=== PATIENT | male | born 1990 ===

== ENCOUNTER 2024-04-18 22:37 | Emergency (ER) | payer OTHER, SELFPAY ==
--- NOTE | ~2024-04-18 | XR_ITS ---
EXAMINATION: XR abdomen/kub 1V DATE: 04/18/2024 22:59 INDICATION: Constipation. TECHNIQUE: A supine view of the abdomen on 3 radiographs was obtained. COMPARISON: None. FINDINGS: There are no dilated loops of bowel. There is a moderate volume of stool in the colon. IMPRESSION: 1. Nonobstructive bowel gas pattern. Reviewed, dictated and finalized at location A. NG MACHINE SERVICER
[2024-04-18 22:39] VITALS: BP 143/78; PULSE 92; RESP 17; TEMP 36.7; O2SAT 96
--- OUTSIDE RECORDS SUMMARY | 2024-04-18 22:40 | XMS_ITS | Continuity of Care Document ---
Author Organization [facility] Address [id number] [place] [address] [address] [place] [address] Phone Care Team Providers Care Medical Office Professional Instructor Name Role Phone Morales OD, Keenan Unavailable Unavailable Advance Directives Directive Yes / No Effective Date File Name No Information Encounters Encounter Description Practice Location Reason(s) For Visit Diagnoses Date Provider Providers Copied on Encounter [facility], [address], [place], [place], [id number], [place] tel:[phone] [facility] No Information Mar-1 8-200 6 Morales OD Keenan. [address] [facility] , [address], [place], [address], [place]. tel:[phone] Family History Family Member Type Diagnosis Age At Onset No Information Payers Payer name Insurance type Covered democrat ID Authoriza tion(s) No Information Social History Type Description Quantity Date Captured Comments Sex Male Smoking Status No Information Chief Complaint And Reason For Visit No Information Reason For Referral Reason For Referral No Information History Of Present Illness Encounter Date Complaint History Of Prese nt Illness No Information Functional Status Date Functional Assessmen t No Information Instructions Date Instruction Additional Infor mation No Information Assessments Type Assessment Date No Information Patient Care Teams Name Effective Dates (start - stop) Status Members No Information
--- OUTSIDE RECORDS SUMMARY | 2024-04-18 22:40 | XMS_ITS | Data Portability ---
Author Organization [employer], Main Office Address [address] [place] [address] Assessment No assessment recorded. Plan of Treatment Reminders Order Date Submit Date Provider Last Modified By Organization Details Last Modified Time Details Appointments Any 15 2024 08:45A Jesus Eddy MD Not available Not available Not available Lab glycohemo globin, total, blood 2022 023 [facility] (Lab), [address] [place], [address], 03/06/2023 21:37:29 lipid panel, serum 2022 023 [facility] (Lab), [address] [place], [address], 03/06/2023 20:44:58 glycohemo globin, total, blood [email or web address] (Lab), [address] [place], [address], 11/20/2023 09:48:24 glycohemo globin, total, blood 2024 025 [email or web address] [facility] (Lab), [address] [place], [address], 04/17/2024 10:42:42 lipid panel, serum 2024 025 [email or web address] [facility] (Lab), [address] [place], [address], 04/17/2024 10:42:42 CMP, serum or plasma 2024 025 [email or web address] [facility] ([facility]), [address], [place], [address], 04/17/2024 10:42:42 Referral podiatris t referral 2023 024 [email or web address] Minh Valdez DPM, [address], [place], [address], 11/28/2023 08:40:21 dermatolo gist referral - Please call patient to schedule an appointme nt. Thank you. 2024 025 [facility], [address] [place] [address], [address], 04/17/2024 12:01:05 Procedures None recorded. Surgeries None recorded. Imaging None recorded. Medication Orders fenofibra te 160 mg tablet 2022 023 [facility]/Pharmacy #[id number], [address], [place], [address], 03/06/2023 11:45:[address] 10 mg tablet 2022 023 [facility]/Pharmacy #[id number], [address], [place], [address], 03/06/2023 11:45:48 rosuvasta tin 20 mg tablet 2022 023 [facility]/Pharmacy #[id number], [address], [place], [address], 03/06/2023 11:45:48 fenofibra te 160 mg tablet 2023 024 [facility]/Pharmacy #[id number], [address], [place], [address], 10/17/2023 14:43:[address] 10 mg tablet 2023 024 [id number], [address], [place], [address], 10/17/2023 14:43:20 rosuvasta tin 20 mg tablet 2023 024 [id number] [address] [place], [address], 10/17/2023 14:43:21 naproxen 500 mg tablet 2023 024 [id number] [address] [place], [address], 10/31/2023 15:36:59 fenofibra te 160 mg tablet 2024 025 [id number], [address] [place], [address], 04/17/2024 13:01:[address] 10 mg tablet 2024 025 [id number], [address] [place], [address], 04/17/2024 13:01:57 rosuvasta tin 20 mg tablet 2024 025 [id number], [address] [place], [address], 04/17/2024 13:01:57 Patient TargetsNo targets recorded. Patient InstructionsNo instructions recorded. Reason for Referral [employer] Specialist Referral for Pain in left foot Referring Physician: Joseph Eddy, Internal Medicine, Encounter Date: 10/31/2023 Weeder Referral for S kin lesion Please call patient to schedule an appointment. Thank you. Referring Physician: Joseph Eddy, Internal Medicine, Encounter Date: 04/17/2024 Results Created Date Observation Date Name Description Value Unit Range Abnormal Flag Note LastModifiedBy Organization Detail LastModifiedTime 03/06/2003/06/2023 LIPID PANEL cholesterol 150 mg/dL 140-19 9 NIH TRISHA NSUS RECOM MENDA TION FOR REMEDIOS STERO L: ADULT CHILD LOW RISK: <200 <170 BORDE RLINE : <200- 239 ----- HIGH RISK: >240 >200 Not Available [facility] (Lab) [address] [place], [address], 03/06/2023 20:44:58 03/06/20 23 03/06/2023 LIPID PANEL triglyceride s 118 mg/dL 0-150 NIH TRISHA NSUS REPOR T RECOM MENDA TION FOR TRIGL YCERI NAVJOT: ADULT CHILD LOW RISK: <150 ----- BODER LINE: 150-1 99 ----- HIGH RISK: >200 ----- Not Available [facility] (Lab) [address] [place], [address], 03/06/2023 20:44:58 03/06/20 23 03/06/2023 LIPID PANEL HDL cholesterol 41 mg/dL 40- Not Available [facility] (Lab) [address] [place], [address], 03/06/2023 20:44:58 03/06/20 23 03/06/2023 LIPID PANEL LDL cholesterol, calculated 85 mg/dL 0-130 NIH TRISHA NSUS REPOR T RECOM MENDA TIONS FOR LDL: ADULT CHILD LOW RISK <130 <110 (OPTI MAL LDL) <100 ----- BORDE RLINE : 130-1 59 ----- HIGH RISK: >160 >130 A TRIGL YCERI DE RESUL T >400 INVAL IDATE S THE CALCU LATIO N FOR LDL FRACT IONAT ION - THE LDL RESUL T WILL NOT BE REPOR GILSON. Not Available [facility] (Lab) [address] [place], [address], 03/06/2023 20:44:58 03/06/20 23 03/06/2023 HEMOG LOBIN A1C HA1C 5.5 % 4.0-6. 0 Diabe ankia Scree lavonne Crite armida: <5.7% Consi stent with absen ce of diabe nakia 5.7-6 .4% Consi stent with incre ased risk for diabe nakia (pred iabet es) >OR=6 .5% Consi stent with diabe nakia REFER ENCE: Diabe nakia Care 2016, 39(Smart ppl.1 ):s13 -s22 Not Available [facility] ([facility]) [address] [place], [address], 03/06/2023 21:37:29 Result Notes None recorded. Problems Name Problem SNOMED Code Status Onset Date Resolution Date Notes Provider Name and Address Organization Details Recorded Time Daytime somnolence 495816617922 Active 2020 Not Available [employer] 3 15:16:09 Asthma 283293554 Active 2020 Not Available [employer] 3 15:16:09 Syncope 193143949 Active 2021 Not Available [employer] 3 15:16:09 Hypertrigl yceridemia 028465463 Active 2018 Not Available [employer] 3 15:16:09 Seasonal allergic rhinitis 354974272 Active 2020 Not Available [employer] 3 15:16:10 Obesity 341835204 Active 2018 Not Available [employer] 3 15:16:10 Bronchospa sm 3033789 Active Not Available [employer] 3 15:16:10 Hyperlipid emia 80830816 Active 2018 Not Available [employer] 3 15:16:10 Prediabete s 964887804 Active 2020 Not Available [employer] 3 15:16:10 Bipolar disorder 45853126 Active 2022 Joseph Eddy MD [address] [facility], [place], [address] , [place] [facility] [employer] 3 11:45:50 Pain in left foot 4106421862174 07 Active 2023 Joseph Eddy MD [address], [place], [address] , [facility] [employer] [facility] 4 15:35:22 Foot pain 16597729 Active 2023 Jose David Carmichael RMA null, [facility] [employer] [facility] 4 10:43:00 Foot pain 07074952 Active 2023 Jose David Carmichael RMNany null, [facility] [employer] 4 15:10:46 Constipati on 37887507 Active 2024 Joseph Eddy MD [address], [place], [address] , [facility] [employer] [facility] [employer] 5 09:45:43 Skin lesion 79796484 Active 2024 Joseph Eddy MD [address], [place], [address] , [facility] [employer] [facility] [employer] 5 09:45:56 Problem Notes None recorded. Procedures Surgical History Date Name Laterality Status Provider Name and Address Organization Details Recorded Time 4 Callus Debridement 2-4 completed Cordell Thomason DPM [address], [place], [address], [facility] [employer] [facility] 11/09/2023 09:11:53 Imaging Results None recorded. Procedure Notes None recorded. Medical Equipment None Reported. Allergies No known drug allergies Medications Name Sig Start Date Stop Date Status Note LastModified by Organization Details LastModified Time fluoxetine 40 mg capsule active Not Available Not Available Not Available ziprasidone 80 mg capsule active Not Available Not Available Not Available azithromyci n 250 mg tablet active Not Available Not Available Not Available naltrexone 50 mg tablet TAKE 1 TABLET BY MOUTH EVERY DAY IN THE MORNING 03/06 completed Not Available Not Available Not Available prednisone 20 mg tablet active Not Available Not Available Not Available clonazepam 0.5 mg tablet TAKE 1 TABLET BY MOUTH THREE TIMES A DAY DIRECTED FOR 30 DAYS 09/04 completed Not Available Not Available Not Available clonazepam 1 mg tablet TAKE 1 TABLET BY MOUTH TWICE A DAY AFTER MEALS 05/05 completed Not Available Not Available Not Available olanzapine 10 mg tablet TAKE 1 TABLET BY MOUTH EVERYDAY AT BEDTIME active Not Available Not Available No t Available lithium carbonate 300 mg capsule 10/09 completed Not Available Not Available Not Available fluvoxamine 100 mg tablet TAKE 3 TABLETS EVERY DAY BY ORAL ROUTE IN THE MORNING FOR 30 DAYS. active Not Available Not Available No t Available clonazepam 2 mg tablet 02/01 completed Not Available Not Available Not Available montelukast 10 mg tablet TAKE 1 TABLET BY MOUTH EVERY DAY 2024 active Not Available Not Available Not Avai lable olanzapine 15 mg tablet TAKE 1 TABLET BY MOUTH AT BEDTIME 01/04 completed Not Available Not Available Not Available fluvoxamine 50 mg tablet active Not Available Not Available Not Available clomipramin e 50 mg capsule Take 2 capsules every day by oral route for 90 days. 12/09 completed Not Available Not Available Not Available albuterol sulfate HFA 90 mcg/actuati on aerosol inhaler INHALE 2 PUFFS BY MOUTH EVERY 4 HOURS NEEDED active Not Available Not Available No t Available propranolol 20 mg tablet active Not Available Not Available Not Available olanzapine 20 mg tablet TAKE 1 TABLET BY MOUTH EVERY DAY AT BEDTIME FOR 30 DAYS 09/04 completed Not Available Not Available Not Available naproxen 500 mg tablet Take 1 tablet twice a day by oral route. 2023 active Not Available Not Available Not Avai lable rosuvastati n 20 mg tablet TAKE 1 TABLET BY MOUTH EVERY DAY 2024 active Not Available Not Available Not Avai l[employer] fenofibrate 160 mg tablet TAKE 1 TABLET BY MOUTH ONCE DAILY 2024 active Not Available Not Available Not Avai lable fluvoxamine ER 150 mg capsule,ext ended release 24 hr 03/28 completed Not Available Not Available Not Available Vitals Date Recorded Body height Provider Name an d Address Organization Details Last Updated DateTime 03/06/2023 182.88 cm Andrew Martinez CMA [place] [employer] [facility] 03/06/2023 11:13:12 Date Recorded Body mass index (BMI) Body weight Provider Name and Address Organization Details Last Updated DateTime 03/06/2023 35.5 kg/m2 384773.2 g Andrew Martinez [employer] [facility] 03/06/2023 11:14:56 Date Recorded Body temperature Provider Name a nd Address Organization Details Last Updated DateTime 03/06/2023 97.2 [degF] Andrew Martinez [employer] [facility] [employer] [facility] 03/06/2023 11:15:21 Date Recorded Heart rate Provider Name an d Address Organization Details Last Updated DateTime 03/06/2023 74 /min Andrew Martinez [employer] [facility] [employer] [facility] 03/06/2023 11:15:29 Date Recorded Oxygen saturation Oxygen saturation in Arterial blood by Pulse oximetry Provider Name and Address Organization Details Last Updated DateTime 03/06/2023 98 % 98 % Andrew Martinez [employer] [facility] [employer] [facility] 03/06/2023 11:15:37 Date Recorded Body height Provider Name an d Address Organization Details Last Updated DateTime 10/17/2023 182.88 cm Myesha lynne [facility] [employer] [facility] [employer] [facility] 10/17/2023 14:17:03 Date Recorded Body mass index (BMI) Body weight Provider Name and Address Organization Details Last Updated DateTime 10/17/2023 35.1 kg/m2 682826.42 g Myesha Sanders [facility] [employer] [facility] [employer] [facility] 10/17/2023 14:17:34 Date Recorded Body temperature Provider Name a nd Address Organization Details Last Updated DateTime 10/17/2023 97.5 [degF] Myesha Sanders [facility] [employer] [facility] [employer] [facility] 10/17/2023 14:17:36 Date Recorded Heart rate Provider Name an d Address Organization Details Last Updated DateTime 10/17/2023 89 /min Myesha lynne [facility] [employer] [facility] [employer] [facility] 10/17/2023 14:17:48 Date Recorded Oxygen saturation Oxygen saturation in Arterial blood by Pulse oximetry Provider Name and Address Organization Details Last Updated DateTime 10/17/2023 98 % 98 % Meysha Sanders [employer] [facility] [employer] [facility] 10/17/2023 14:17:50 Date Recorded Body height Provider Name an d Address Organization Details Last Updated DateTime 10/31/2023 182.88 cm Radha Alvarez MA [employer] 10/31/2023 15:15:12 Date Recorded Body mass index (BMI) Body weight Provider Name and Address Organization Details Last Updated DateTime 10/31/2023 35.3 kg/m2 090465.09 g Rahda Alvarez MA [employer] [facility] [employer] 10/31/2023 15:15:25 Date Recorded Body temperature Provider Name a nd Address Organization Details Last Updated DateTime 10/31/2023 98.3 [degF] Radha Alvarez MA [employer] 10/31/2023 15:15:51 Date Recorded Heart rate Provider Name an d Address Organization Details Last Updated DateTime 10/31/2023 91 /min Radha Alvarez MA [employer] [facility] [employer] 10/31/2023 15:16:01 Date Recorded Oxygen saturation Oxygen saturation in Arterial blood by Pulse oximetry Provider Name and Address Organization Details Last Updated DateTime 10/31/2023 98 % 98 % Radha Alvarez MA [employer] 10/31/2023 15:16:07 Date Recorded Body height Provider Name an d Address Organization Details Last Updated DateTime 11/08/2023 182.88 cm Jose David Carmichael [employer] 11/08/2023 10:01:55 Date Recorded Body mass index (BMI) Body weight Provider Name and Address Organization Details Last Updated DateTime 11/08/2023 35.3 kg/m2 600515.02 g Jose David Carmichael [employer]any [employer] [facility] [employer] 11/08/2023 10:02:20 Date Recorded Oxygen saturation Oxygen saturation in Arterial blood by Pulse oximetry Provider Name and Address Organization Details Last Updated DateTime 11/08/2023 97 % 97 % Jose David Carmichael SHAHEEN [employer] 11/08/2023 10:13:55 Date Recorded Body temperature Provider Name a nd Address Organization Details Last Updated DateTime 11/08/2023 98.2 [degF] Jose David Carmichael SHAHEEN [employer] [facility] [employer] 11/08/2023 10:02:32 Date Recorded Heart rate Provider Name an d Address Organization Details Last Updated DateTime 11/08/2023 96 /min Jose David Carmichael [employer] 11/08/2023 10:13:23 Date Recorded Body height Provider Name an d Address Organization Details Last Updated DateTime 04/17/2024 182.88 cm Myesha Welshyesikamarjan lynne [employer] 04/17/2024 09:21:15 Date Recorded Body mass index (BMI) Body weight Provider Name and Address Organization Details Last Updated DateTime 04/17/2024 35.3 kg/m2 177848.02 g Myesha Bobocatracho [employer] 04/17/2024 09:24:27 Date Recorded Body temperature Provider Name a nd Address Organization Details Last Updated DateTime 04/17/2024 97 [degF] Myesha Tommy [employer] 04/17/2024 09:24:30 Date Recorded Heart rate Provider Name an d Address Organization Details Last Updated DateTime 04/17/2024 90 /min Myesha Traci lynne [employer] 04/17/2024 09:24:41 Date Recorded Oxygen saturation Oxygen saturation in Arterial blood by Pulse oximetry Provider Name and Address Organization Details Last Updated DateTime 04/17/2024 98 % 98 % Myesha nader [employer] 04/17/2024 09:24:44 Date Recorded Systolic blood pressure Diastolic blood pressure Provider Name and Address Organization Details Last Updated DateTime 03/06/2023 110 mm[Hg] 68 mm[Hg] Andrew Martinez CMA [employer] 03/06/2023 11:15:12 Date Recorded Systolic blood pressure Diastolic blood pressure Provider Name and Address Organization Details Last Updated DateTime 10/17/2023 136 mm[Hg] 82 mm[Hg] Myesha Sanders [employer] 10/17/2023 14:18:52 Date Recorded Systolic blood pressure Diastolic blood pressure Provider Name and Address Organization Details Last Updated DateTime 10/31/2023 131 mm[Hg] 85 mm[Hg] Radha Alvarez MA [employer] 10/31/2023 15:17:50 Date Recorded Systolic blood pressure Diastolic blood pressure Provider Name and Address Organization Details Last Updated DateTime 11/08/2023 127 mm[Hg] 80 mm[Hg] Jose David Carmichael [facility] [place] [employer] 11/08/2023 10:14:03 Date Recorded Systolic blood pressure Diastolic blood pressure Provider Name and Address Organization Details Last Updated DateTime 04/17/2024 132 mm[Hg] 80 mm[Hg] Myesha Sanders [facility] [place] [employer] 04/17/2024 09:25:48 Social History Question Answer Notes LastModified by Organizat ion Details LastModified Time Tobacco Smoking Status Never Smoker Not Available [facility] 05/17/2022 15:13:31 Do You Have An Advance Directive? No [id number] Information not available 05/17/2022 What Is Your Level Of Alcohol Consumption? Occasional [id number] Information not available 05/17/2022 What Is Your Level Of Caffeine Consumption? Moderate [id number] Information not available 05/17/2022 How Much Tobacco Do You Chew? None [id number] Information not available 05/17/2022 In The 14 Days Before Symptom Onset, Have You Had Close Contact With A Laboratory-confir med COVID-19 While That Case Was Ill? No [id number] Information not available 05/17/2022 In The 14 Days Before Symptom Onset, Have You Had Close Contact With A Person Who Is Under Investigation For COVID-19 While That Person Was Ill? No [id number] Information not available 05/17/2022 What Type Of Diet Are You Following? REGULAR [id number] Information not available 05/17/2022 Which Illicit Or Recreational Drugs Have You Used? 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 [id number] Information not available 05/17/2022 What Was The Date Of Your Most Recent Tobacco Screening? 11/08/2023 [email or web address] Information not available 11/08/2023 Do You Use Sunscreen Routinely? Yes [id number] Information not available 05/17/2022 Have You Recently Traveled Abroad? No [id number] Information not available 05/17/2022 Do You Have Any Dietary Restrictions? No [id number] Information not available 05/17/2022 Sex: Male Functional Status Question Answer Note LastModified by Organizat ion Details LastModified Time What is your exercise level? Occasional [id number] Information not available 05/17/2022 Mental Status None recorded. Family History Relationship Description Onset Age of this Age Resolved Age Notes LastModified by Organization Details LastModified Time Father No current problems or disability [id number] Not available 05/17/2022 15:13:47 Mother No current problems or disability [id number] Not available 05/17/2022 15:13:47 Medical History No medical history recorded. Immunizations Vaccine Type Date Status Note Provider Nam e and Address Organization Details Recorded Time SARS-COV-2 (COVID-19) vaccine, UNSPECIFIED 1 completed Not Available [facility] 05/17/2022 15:18:31 Influenza, split virus, quadrivalent, PF 2 completed Not Available [facility] 05/17/2022 15:18:32 Influenza, split virus, quadrivalent, PF 0 completed Not Available [facility] 05/17/2022 15:18:32 Influenza, split virus, quadrivalent, PF 9 completed Not Available [facility] 05/17/2022 15:18:32 Influenza, split virus, quadrivalent, PF 8 completed Not Available [facility] 05/17/2022 15:18:32 Influenza, split virus, quadrivalent, PF 1 completed Not Available [facility] 05/17/2022 15:18:32 Past Encounters Encounter ID Performer Location Encounter Start Date Encounter Closed Date Diagnosis/Indication Diagnosis SNOMED-CT Code Diagnosis ICD10 Code Diagnosis Note [id number] [facility] Internal [address] [place] [address] 07/08/2020 00:00:00 07/08/2020 11:24:01 [id number] S_[facility] Internal [address] [place] [address] 01/04/2021 00:00:00 01/04/2021 13:37:03 [id number] [facility] [address] [facility] [place] [address] 07/05/2021 00:00:00 07/05/2021 11:29:14 [id number] [facility] Internal [facility] [address] [place] [address] 07/19/2021 00:00:00 07/19/2021 15:20:35 [id number] [facility] Internal Med [address] [place] [address] 12/30/2021 00:00:00 12/30/2021 11:41:36 [id number] [facility] [address] [place] [address] 05/05/2022 00:00:00 05/05/2022 11:37:33 [id number] Joseph Eddy MD S_[facility] Internal Med [address] [place] [address] 09/04/2022 11:05:50 09/04/2022 11:35:32 Hyperlipidemia 28640109 E78.5 advised to watch diet, lose more weight Asthma 922697587 J45.90 9 under control Seasonal a llergic rhinitis 777560398 J30.2 stable with otc Obesity 967598051 E66.9 advised to watch diet and lose more Prediabetes 465706484 R7 3.03 keep watching diet, Hypertriglyceridemia 302 668740 E78.1 under control Daytime somnolence 96115 08715 00 R40.0 does not want sleep study Adult [facility] th examination 568238259 Z00.00 COVID- has had both injections - doesn't remember the 1st date12/2020 [id number] Joseph Eddy MD [facility] Internal Med [address] [place] [address] 03/06/2023 11:07:06 03/06/2023 11:54:02 Adult health examination 435855666 Z00.00 Z13.220 COVID- has had both injections , 12/2020, does not want Hyperlipidemia 95887620 E78.5 advised to watch diet, lose more weight Asthma 469434080 J45.90 9 under control Seasonal a llergic rhinitis 007099983 J30.2 stable with otc Obesity 860776358 E66.9 advised to watch diet and lose Prediabetes 189689696 R7 3.03 diet discussed Hypertriglyceridemia 302 146362 E78.1 under control Daytime somnolence 62559 51331 00 R40.0 does not want sleep study Bipolar disorder 9058138 4 F31.9 seeing psych [id number] Joseph Eddy MD [facility] Internal Med [facility] [address] [place] [address] 10/17/2023 14:02:50 10/17/2023 14:47:19 Adult health examination 268678150 Z00.00 Z13.220 COVID- has had both injections , - 12/2020, does not want Hyperlipidemia 41433629 E78.5 keep watching diet Asthma 518322432 J45.90 9 under control Seasonal a llergic rhinitis 694010768 J30.2 stable with otc Obesity 618372732 E66.9 advised to watch diet and lose Prediabetes 509058493 R7 3.03 diet discussed Hypertriglyceridemia 302 813172 E78.1 under control Daytime somnolence 12058 55601 00 R40.0 does not want sleep study Bipolar disorder 4891129 4 F31.9 seeing psych and under control [id number] Joseph Eddy MD [facility] Internal Med [facility] [address] [place] [address] 10/31/2023 15:10:49 10/31/2023 15:39:40 Pain in left foot 4095890894 53799 M79.672 probably needs orthotic, to see podiatry, letter not to stand at work [id number] Cordell Thomason DPM [facility] Podiatry [facility] [address] [address] 11/08/2023 09:44:45 11/09/2023 09:44:56 [id number] Joseph Eddy MD [facility] Internal Med [facility] [address] [facility] [place] [address] 04/17/2024 09:17:17 04/17/2024 09:48:48 Adult health examination 550014108 Z00.00 Z13.220 COVID- has had both injections , - 11/2023 Hyperlipidemia 25772319 E78.5 keep watching diet Asthma 388153512 J45.90 9 under control Seasonal a llergic rhinitis 081779844 J30.2 stable with otc Obesity 198346762 E66.9 advised to watch diet and lose more Prediabetes 793871263 R7 3.03 diet discussed Hypertriglyceridemia 302 955793 E78.1 under control Daytime somnolence 04947 22839 00 R40.0 does not want sleep study Bipolar disorder 2364043 4 F31.9 seeing psych and under control Constipation 29711703 K5 9.00 diet and otc discussed Skin lesion 18471012 L98 .9 Health Concerns Section Related Observation LastModified by Organization Detai ls LastModified Time None Recorded Concern Status LastModified by Organization Details LastModified Time None Recorded Advance Directives Directive N: Payers Encounter Date Sequence Insurance Name Policy Number Policy Rodgers Covered Member ID Rodgers Member ID Guarantor Name 03/06/2023 1 [facility] ([facility] [id number] Cuco Jaiem [id number] Cuco Jaime 10/17/2023 1 [facility] [facility] [id number] Cuco Jaime [id number] Cuco Jaime 10/31/2023 1 [facility] [facility] ([facility]) [id number] Cuco Jaime [id number] Cuco Jaime 11/08/2023 1 [employer] [facility] (PPO) [id number] Cuco Jaime [id number] Cuco Jaime 04/17/2024 1 [facility] ([facility] [id number] Cuco Jaime [id number] Cuco Sandoval Notes Date Note Type Note Provider Name and Address Organization Details Recorded Time 03/06/2023 text/html He is here today for a 6month follow up, Compliant to medications. Asthma and all rhinitis are better, no cough, wheezing, sob, or cp, using inhaler in the summer more often,Meds- montelukast 10 mg daily, albuterol inhaler prn ,hyperlipidemia/Hyp ertriglyceridemia- on meds and under control, advised to watch diet, labs good 01/07 , will get it todayHe is seeing psych for mood disorder and OCD. (Dr. Shirley)Meds- Fluvoxamine 100 mg 3 tabs a dayObesity- had LOST 34lbs in the past by watching diet, has gained 14 backPrediabetes- to lose weight, advised to watch diet, A1c was 6 (12/2021) Joseph Eddy MD [address], [place], [address], [employer] 03/06/2023 11:48:13 10/17/2023 text/html He is here today for a 6month follow up, Compliant to medications.Asthma and all rhinitis are better, no cough, wheezing, sob, or cp, using inhaler in the summer more often,Meds- Montelukast 10 mg daily, Albuterol inhaler prn ,Hyperlipidemia/Hyp ertriglyceridemia- on meds and under control, advised to watch diet, labs good 03/10Meds- Rosuvastatin 20mg dailyHe is seeing psych for mood disorder and OCD. (Dr. Shirley)Meds- Fluvoxamine 100 mg 3 tabs a dayObesity- had LOST 34lbs in the past by watching diet, has lost 3 lbPrediabetes- to lose weight, advised to watch diet, A1c was 5.5 (03/06/2023) Joseph Edyd MD [address], [address], [place], [address], [employer] 10/17/2023 14:45:36 10/31/2023 text/html patient is here for left ankle pain, with radiating pain up the leg with a pronounced limp. pt is requesting a letter of accommodation for work as well as possible referral for xray of said ankle.He has no injury.no swellingpain is effecting his workHe is limping when walking Joseph Eddy MD [address], [address], [place], [address], [employer] 10/31/2023 15:37:22 11/08/2023 text/html Pt's tendo-Achil les Lt is painfree. No pain deep palpation, neg Moreno's sign.Full strength. Pt c/o calluses both feet on great toes. Cordell Thomason DPM [address] [facility] [address], [address], [place], [address], [facility] [employer] 11/09/2023 09:12:10 04/17/2024 text/html He is here today for a 6month follow up, Compliant to medications.PT IS FASTING ( [facility] ) has a facial lesion, getting infected frequently Asthma and all rhinitis are better, no symptoms, using inhaler in the summer more often,Meds- Montelukast 10 mg daily, Albuterol inhaler prn ,Hyperlipidemia/Hyp ertriglyceridemia- on meds and under control, advised to watch diet, labs good 03/10Meds- Rosuvastatin 20mg dailyHe is seeing psych for mood disorder and OCD. (Dr. Shirley)Meds- Fluvoxamine 100 mg 3 tabs a dayObesity- had LOST 34lbs in the past by watching diet, has not lost wtPrediabetes- to lose weight, advised to watch diet, A1c was 5.5 (03/06/2023) Joseph Eddy MD [address], [address], [place], [address], [facility] [employer] 04/17/2024 09:46:27
--- OUTSIDE RECORDS SUMMARY | 2024-04-18 22:41 | XMS_ITS | Continuity of Care Document ---
Author Organization [place] [facility], [facility] Address [address] [place] [address] Assessment No assessment recorded. Plan of Treatment Reminders Order Date Submit Date Provider Last Modified By Organization Details Last Modified Time Details Appointments Any 15 2024 08:45A Jesus Eddy MD Not available Not available Not available Lab glycohemo globin, total, blood [address] (Lab), [address] [place], [address], 04/17/2024 10:42:42 lipid panel, serum [address] (Lab), [address] [place], [address], 04/17/2024 10:42:42 CMP, serum or plasma [address] (Lab), [address] [place], [address], 04/17/2024 10:42:42 Referral dermatolo gist referral - Please call patient to schedule an appointme nt. Thank you. 2024 025 [facility], [address] [place] [address], [address], 04/17/2024 12:01:05 Procedures None recorded. Surgeries None recorded. Imaging None recorded. Medication Orders fenofibra te 160 mg tablet [address]/Pharmacy #[id number], [address], [place], [address], 04/17/2024 13:01:[address] 10 mg tablet [address]/Ph[address]acy #[id number], [address], [place], [address], 04/17/2024 13:01:57 rosuvasta tin 20 mg tablet [address]acy #[id number], [address], [place], [address], 04/17/2024 13:01:57 Patient TargetsNo targets recorded. Patient InstructionsNo instructions recorded. Reason for Referral Console Attendant Referral for S kin lesion Please call patient to schedule an appointment. Thank you. Referring Physician: Joseph Eddy, Internal Medicine, Encounter Date: 04/17/2024 Problems Name Problem SNOMED Code Status Onset Date Resolution Date Notes Provider Name and Address Organization Details Recorded Time Daytime somnolence 849322417367 Active 2020 Not Available [facility] 3 15:16:09 Asthma 286439481 Active 2020 Not Available [facility] 3 15:16:09 Syncope 741700222 Active 2021 Not Available [facility] 3 15:16:09 Hypertrigl yceridemia 248999470 Active 2018 Not Available [facility] 3 15:16:09 Seasonal allergic rhinitis 360500905 Active 2020 Not Available [facility] 3 15:16:10 Obesity 606377600 Active 2018 Not Available [facility] 3 15:16:10 Bronchospa sm 2675771 Active Not Available [facility] 3 15:16:10 Hyperlipid emia 75426710 Active 2018 Not Available [facility] 3 15:16:10 Prediabete s 634805632 Active 2020 Not Available [facility] 3 15:16:10 Bipolar disorder 03326034 Active 2022 Joseph Eddy MD [address], [address], [place], [address] , [employer] 3 11:45:50 Pain in left foot 4168311110765 07 Active 2023 Joseph Eddy MD [address], [address], [place], [address] , [employer] 4 15:35:22 Foot pain 81820846 Active 2023 SHAHEEN Schneider, [employer] [facility] [employer] 4 10:43:00 Foot pain 96256861 Active 2023 SHAHEEN Schneider, [employer] [facility] [employer] 4 15:10:46 Constipati on 13105542 Active 2024 Joseph Eddy MD [address], [address], [place], [address] , [employer] 5 09:45:43 Skin lesion 21209164 Active 2024 Joseph Eddy MD [address], [place], [address] , [employer] 5 09:45:56 Problem Notes None recorded. Procedures Surgical History Date Name Laterality Status Provider Name and Address Organization Details Recorded Time 4 Callus Debridement 2-4 completed Cordell Thomason DPM [address], [address], [place], [address], [employer] [facility] [employer] 11/09/2023 09:11:53 Imaging Results None recorded. Procedure [...] Last Updated DateTime 04/17/2024 182.88 cm Myesha VarelaetelvinaSHAHEEN smith G3 [facility] 04/17/2024 09:21:15 Date Recorded Body mass index (BMI) Body weight Provider Name and Address Organization Details Last Updated DateTime 04/17/2024 35.3 kg/m2 783757.02 g Myesha Sanders BactestNany G3 [facility] 04/17/2024 09:24:27 Date Recorded Body temperature Provider Name a nd Address Organization Details Last Updated DateTime 04/17/2024 97 [degF] Myesha Sanders BactestNany G3 [facility] 04/17/2024 09:24:30 Date Recorded Heart rate Provider Name an d Address Organization Details Last Updated DateTime 04/17/2024 90 /min Myesha Welshlina lynne [employer] G3 [facility] 04/17/2024 09:24:41 Date Recorded Oxygen saturation Oxygen saturation in Arterial blood by Pulse oximetry Provider Name and Address Organization Details Last Updated DateTime 04/17/2024 98 % 98 % Myesha Sanders BactestNany G3 [facility] 04/17/2024 09:24:44 Date Recorded Systolic blood pressure Diastolic blood pressure Provider Name and Address Organization Details Last Updated DateTime 04/17/2024 132 mm[Hg] 80 mm[Hg] Myesha Varelaetelvinacatracho BactestNany G3 [facility] 04/17/2024 09:25:48 Social History Question Answer Notes LastModified by Organizat ion Details LastModified Time Tobacco Smoking Status Never Smoker Not Available [facility] 05/17/2022 15:13:31 Do You Have An Advance Directive? No [id number] Information not available 05/17/2022 What Is Your Level Of Alcohol Consumption? Occasional [id number] Information not available 05/17/2022 What Is Your Level Of Caffeine Consumption? Moderate [id number] Information not available 05/17/2022 How Much Tobacco Do You Chew? None MIGRATION.[id number] Information not available 05/17/2022 In The 14 Days Before Symptom Onset, Have You Had Close Contact With A Laboratory-confir med COVID-19 While That Case Was Ill? No [id number] Information not available 05/17/2022 In The 14 Days Before Symptom Onset, Have You Had Close Contact With A Person Who Is Under Investigation For COVID-19 While That Person Was Ill? No [id number] Information not available 05/17/2022 What Type Of Diet Are You Following? REGULAR [id number].[id number] Information not available 05/17/2022 Which Illicit Or Recreational Drugs Have You Used? 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 MIGRATION.[id number] 4440 Information not available 05/17/2022 What Was The Date Of Your Most Recent Tobacco Screening? 11/08/2023 [email or web address] Information not available 11/08/2023 Do You Use Sunscreen Routinely? Yes [id number].[id number] 1999 Information not available 05/17/2022 Have You Recently Traveled Abroad? No [id number].[id number] Information not available 05/17/2022 Do You Have Any Dietary Restrictions? No MIGRATION.[id number] Information not available 05/17/2022 Sex: Male Functional Status Question Answer Note LastModified by Organizat ion Details LastModified Time What is your exercise level? Occasional [id number] Information not available 05/17/2022 Mental Status None recorded. Family History Relationship Description Onset Age of this Age Resolved Age Notes LastModified by Organization Details LastModified Time Father No current problems or disability [id number] Not available 05/17/2022 15:13:47 Mother No current problems or disability [id number] Not available 05/17/2022 15:13:47 Medical History No medical history recorded. Immunizations Vaccine Type Date Status Note Provider Nam e and Address Organization Details Recorded Time SARS-COV-2 (COVID-19) vaccine, UNSPECIFIED 1 completed Not Available [facility] 05/17/2022 15:18:31 Influenza, split virus, quadrivalent, PF 2 completed Not Available [facility] 05/17/2022 15:18:32 Influenza, split virus, quadrivalent, PF 0 completed Not Available [facility] 05/17/2022 15:18:32 Influenza, split virus, quadrivalent, PF 9 completed Not Available [facility] 05/17/2022 15:18:32 Influenza, split virus, quadrivalent, PF 8 completed Not Available [facility] 05/17/2022 15:18:32 Influenza, split virus, quadrivalent, PF 1 completed Not Available [facility] 05/17/2022 15:18:32 Past Encounters Encounter ID Performer Location Encounter Start Date Encounter Closed Date Diagnosis/Indication Diagnosis SNOMED-CT Code Diagnosis ICD10 Code Diagnosis Note [id number] Joseph Eddy MD [facility] [address] [place] [address] 04/17/2024 09:17:17 04/17/2024 09:48:48 Adult health examination 423289383 Z00.00 Z13.220 COVID- has had both injections , - 11/2023 Hyperlipidemia 45354734 E78.5 keep watching diet Asthma 055766510 J45.90 9 under control Seasonal a llergic rhinitis 102411310 J30.2 stable with otc Obesity 404891788 E66.9 advised to watch diet and lose more Prediabetes 408965024 R7 3.03 diet discussed Hypertriglyceridemia 302 702257 E78.1 under control Daytime somnolence 52734 90325 00 R40.0 does not want sleep study Bipolar disorder 8083600 4 F31.9 seeing psych and under control Constipation 21224777 K5 9.00 diet and otc discussed Skin lesion 52426250 L98 .9 Health Concerns Section Related Observation LastModified by Organization Detai ls LastModified Time None Recorded Concern Status LastModified by Organization Details LastModified Time None Recorded Payers Encounter Date Sequence Insurance Name Policy Number Policy Rodgers Covered Member ID Rodgers Member ID Guarantor Name 04/17/2024 1 [facility] (PPO) [id number] Cuco Sandoval [id number] Cuco Sandoval Notes Date Note Type Note Provider Name and Address Organization Details Recorded Time 04/17/2024 text/html He is here today for a 6month follow up, Compliant to medications.PT IS FASTING ( [facility] ) has a facial lesion, getting infected frequently Asthma and all rhinitis are better, no symptoms, using inhaler in the summer more often,Meds- Montelukast 10 mg daily, Albuterol inhaler prn ,Hyperlipidemia/Hy pertriglyceridemia - on meds and under control, advised to watch diet, labs good 03/10Meds- Rosuvastatin 20mg dailyHe is seeing psych for mood disorder and OCD. (Dr. Shirley)Meds- Fluvoxamine 100 mg 3 tabs a dayObesity- had LOST 34lbs in the past by watching diet, has not lost wtPrediabetes- to lose weight, advised to watch diet, A1c was 5.5 (03/06/2023) Joseph Eddy MD [address] [place] [address], [facility] [address], [place], [address], [facility] [employer] 04/17/2024 09:46:27
--- OUTSIDE RECORDS SUMMARY | 2024-04-19 01:53 | XMS_ITS | Continuity of Care Document ---
Author Organization [facility] Address [address] [place] [address] [address] [place] [address] Phone Care Team Providers Care Liquefaction Plant Operator Name Role Phone Morales OD, Keeann Unavailable Unavailable Advance Directives Directive Yes / No Effective Date File Name No Information Encounters Encounter Description Practice Location Reason(s) For Visit Diagnoses Date Provider Providers Copied on Encounter [facility], [address], [place], [place], [id number], [place] tel:[phone] [facility] No Information Mar-1 8-200 6 Morales OD Keenan. [address] [facility] [place] , [address], [place], [address], [place]. tel:[phone] Family History Family Member Type Diagnosis Age At Onset No Information Payers Payer name Insurance type Covered libertarian ID Authoriza tion(s) No Information Social History [...]
--- NOTE | 2024-04-19 02:06 | ED_ITS ---
HPI - Abdominal Pain General Chief Complaint: Abdominal Pain Stated Complaint: impacted bowel Time Seen by Provider: 04/19/24 01:33 History of Present Illness HPI narrative: 34-year-old male presents emergency department for constipation for 7 months. Patient saw his PCP a couple days ago for a checkup and was prescribed a stool softener which she has been taking for the past 2 days without improvement. States he used a Fleet enema earlier today which did not cause him to have a bowel movement. States he read the instructions on the Fleet enema which told him to seek medical attention if the Fleet enema did not work which is what prompted him to come to the ED. He also states he has been having bright red blood from his rectum for the past several weeks after having a bowel movement. States it is streaking on the toilet paper. He also reports sharp knife-like pain when having a bowel movement. Admits to straining. Denies fever, nausea vomiting, prior abdominal surgeries, obstipation, dysuria or hematuria. Is reporting some lower abdominal discomfort and fullness. Related Data Allergies Allergy/AdvReac Type Severity Reaction Status Date / Time No Known Allergies Allergy Verified 04/18/24 22:38 Review of Systems Review of Systems: All systems reviewed & are unremarkable except as noted in HPI and below Exam Narrative: GENERAL: Well-appearing, well-nourished, and in no acute distress. HEAD: Normocephalic, atraumatic. EYES: EOMI. ENT: Nares clear, no rhinorrhea or epistaxis. Mucous membranes moist. NECK: Supple. CHEST: Clear to auscultation. No respiratory distress. HEART: Regular rate and rhythm. No murmur heard. Normal peripheral pulses. ABDOMEN: Soft, nontender, nondistended, normal active bowel sounds. No rebound, guarding or rigidity. No CVA tenderness. Rectal exam chaperoned by R.N. which reveals a posterior midline anal fissure with minimal bright red blood, no palpable hemorrhoids, no melena, Hemoccult-positive EXTREMITIES: Normal range of motion. No edema. SKIN: Warm, dry, no rash. NEURO: No focal deficits. Alert and oriented x3 Course Vital Signs Vital signs: Vital Signs Temperature 98.1 F 04/18/24 22:39 Pulse Rate 92 04/18/24 22:39 Respiratory Rate 17 04/18/24 22:39 Blood Pressure 143/78 H 04/18/24 22:39 Pulse Oximetry 96 04/18/24 22:39 Temperature 98.1 F 04/18/24 22:39 Pulse Rate 92 04/18/24 22:39 Respiratory Rate 17 04/18/24 22:39 Blood Pressure 143/78 H 04/18/24 22:39 Pulse Oximetry 96 04/18/24 22:39 MDM - Abdominal Pain MDM Narrative Medical decision making narrative: 34-year-old male presents to emergency department for constipation for several months, bright red blood streaking on his toilet paper after having a bowel movement, and knife-like pain while straining to have a bowel movement. Vital stable. Exam significant for normoactive bowel sounds, soft and nontender abdomen. Rectal exam reveals a posterior midline anal fissure with tenderness, likely source of BRBPR. KUB shows a nonobstructive bowel gas pattern with moderate volume of stool in the colon. Will start the patient on topical nitroglycerin for anal fissure and bowel regimen with docusate and MiraLax. He was given follow-up for GI. Return precautions discussed. He is agreeable to plan verbalized understanding. Discharged in stable condition. Imaging Data Radiologist's impression: ITS Impressions Abdomen X-Ray 04/18/24 23:06 IMPRESSION: 1. Nonobstructive bowel gas pattern. Discharge Plan Discharge Clinical Impression: Anal fissure Constipation Qualifiers: Constipation type: unspecified constipation type Qualified Code(s): K59.00 - Constipation, unspecified Patient Disposition: Home, Self-Care Condition: Stable Instructions: Antibiotic Form, Constipation (DC), Anal Fissure (ED), High Fiber Diet (ED), Sitz Bath (DC) Additional Instructions: Please use the cream as directed. Take docusate daily and MiraLax until you initiate a bowel movement. Eat a high-fiber diet. Take Sitz baths several times a day every time after bowel movement to assist with healing of the ankle fissure. Follow-up with the GI doctor. Return to the emergency department if you develop increasing blood with bowel movement, focal or worsening abdominal pain, fever, vomiting, or other concerning symptoms. Patient Language: Wallisian Prescriptions: New docusate sodium 100 mg capsule 100 mg PO BID Qty: 60 0RF polyethylene glycol 3350 17 gram/dose powder 17 g PO BID Qty: 119 0RF nitroglycerin 0.4 % (w/w) ointment 1 inch RECTAL BID 28 Days Qty: 30 0RF Follow-up/Referrals: Nunu,Joseph Adame MD [Primary Care Provider] - Burt Josue MD [Physician] -
[2024-04-19 02:28] VITALS: BP 140/80; PULSE 89; RESP 18; O2SAT 99
[2024-04-19 02:29] VITALS: BP 140/80; PULSE 89; RESP 18; O2SAT 99
== END 2024-04-19 02:35 | disposition home or self-care (01) ==
PROVIDERS: Emergency Provider Physician Assistant; PCP Internal Medicine
DX: K60.2 Anal fissure, unspecified (principal); K59.00 Constipation, unspecified
CPT/HCPCS: 74018; 99283

== ENCOUNTER 2024-04-19 18:34 | Emergency (ER) | payer OTHER, SELFPAY ==
--- NOTE | ~2024-04-19 | CT_ITS ---
EXAMINATION: CT abdomen pelvis w con DATE: 04/19/2024 21:45 INDICATION: abd pain, constipation TECHNIQUE: Computed tomography (CT) of the abdomen and pelvis was performed with 100 mL Omnipaque-350 intravenous contrast. Automated exposure control and iterative reconstruction technique were employe d. The dose-length product was 1552.81 mGy-cm. COMPARISON: None. FINDINGS: Lower thorax: Unremarkable Liver: Subcentimeter right lobe hypodensity, too small to characterize, likely cyst or hemangioma. Biliary/Gallbladder: Gallbladder is normal. No bile duct dilation. Pancreas: Fatty infiltration. Spleen: Normal. Adrenals:No mass. Kidneys: No suspicious mass, obstructing stone, or hydronephrosis. GI tract: No small bowel dilation. The rectum is dilated to 7.4 cm by formed stool, without wall thic kening or surrounding inflammatory change. Normal appendix. Mesentery/Peritoneum: No ascites, mass, or free air. Retroperitoneum: No mass. Pelvis: Distended urinary bladder without wall thickening. Normal prostate. Soft Tissues: Soft tissues and body wall unremarkable. Bones: No acute osseous finding. IMPRESSION: Distended urinary bladder, correlate for clinical findings of urinary retention. Possible fecal impaction. Reviewed, dictated and finalized at location K. DEVELOPER IMPRESSION: Distended urinary bladder, correlate for clinical findings of urinary retention . Possible fecal impaction.
--- OUTSIDE RECORDS SUMMARY | 2024-04-19 18:37 | XMS_ITS | Continuity of Care Document ---
Author Organization [facility] Address [address] [place] [address] [address] [place] [address] Phone Care Team Providers Care Community Recreation Coordinator Name Role Phone Morales OD, Keenan Unavailable Unavailable Advance Directives Directive Yes / No Effective Date File Name No Information Encounters Encounter Description Practice Location Reason(s) For Visit Diagnoses Date Provider Providers Copied on Encounter [facility], [address], [place], [place], [id number], [place] tel:[phone] [facility] [place] No Information Mar-1 8-200 6 Morales OD Keenan. [address] [facility] [place] , [address], [place], [address], [place]. tel:[phone] Family History Family Member Type Diagnosis Age [...]
[2024-04-19 18:58] VITALS: BP 140/86; PULSE 99; RESP 20; TEMP 36.6; O2SAT 98
[2024-04-19 20:14] LABS: Basophils Absolute Auto 0.1 K/mm3 (0.0-0.1); Basophils Percent Auto 0.5 % (0.2-1.2); Eosinophils Absolute Auto 0.1 K/mm3 (0-0.3); Eosinophils Percent Auto 0.7 % (0-4.4); Hematocrit 43.8 % (42.0-52.0); Hemoglobin 14.3 g/dL (14.0-18.0); Immature Granulocyte Absolute 0.05 K/mm3 (0.00-0.031); Immature Granulocyte Percent A 0.5 % (0-0.5); Lymphocytes Absolute Auto 1.13 K/mm3 (0.9-3.2); Lymphocytes Percent Auto 10.3 % (18.3-44.2); Mean Corpuscular HGB Conc 32.6 g/dl (32-36); Mean Corpuscular Hemoglobin 28.7 pg (26-34); Mean Corpuscular Volume 87.8 fl (80-100); Monocytes Absolute Auto 0.8 K/mm3 (0.1-0.6); Monocytes Percent Auto 7.5 % (2.6-8.5); Neutrophils Absolute Auto 8.9 K/mm3 (1.3-6.7); Neutrophils Percent Auto 80.5 % (45.5-73.1); Platelet Count Result 302 k/mm3 (150-375); Red Blood Count 4.99 M/mm3 (4.6-6.20); Red Cell Distribution Width 13.3 % (11.5-14.5)
--- OUTSIDE RECORDS SUMMARY | 2024-04-19 20:14 | XMS_ITS | Continuity of Care Document ---
Author Organization [facility] Address [address] [place] [address] [address] [place] [address] Phone Care Team Providers Care Habilitation Assistant Name Role Phone Morales OD, Keenan Unavailable Unavailable Advance Directives Directive Yes / No Effective Date File Name No Information Encounters Encounter Description Practice Location Reason(s) For Visit Diagnoses Date Provider Providers Copied on Encounter [facility], [address], [place], [place], [id number], [place] tel:[phone] [facility] [place] No Information Mar-1 8-200 6 Morales OD Keenan. [address] [facility] [place] , [address], [place], [address], [place]. tel:[phone] Family History Family Member Type Diagnosis Age At Onset No Information Payers Payer name Insurance type Covered constitution party ID Authoriza tion(s) No Information Social History [...]
[2024-04-19 20:23] LABS: Alanine Aminotransferase 26 U/L (6-50); Albumin Level 4.7 g/dL (3.5-5.1); Alkaline Phosphatase 54 U/L (38-126); Anion Gap 12 mmol/L (4-12); Aspartate Amino Transferase 24 U/L (17-59); Bilirubin,Total 0.9 mg/dL (0.2-1.3); Blood Urea Nitrogen 11 mg/dL (9-20); Calcium 10.3 mg/dL (8.4-10.2); Carbon Dioxide 25 mmol/L (22-30); Chloride 104 mmol/L (98-107); Estimated CRCL calculation 118 ml/min; Estimated Glomerular Filt Rate > 60; Glucose 98 mg/dL (65-110); Lipase 43 U/L (23-300); Potassium 4.2 mmol/L (3.4-5.0); Sodium 141 mmol/L (137-145)
--- NOTE | 2024-04-19 20:45 | ED.ABDPAIN ---
HPI - Abdominal Pain General Chief Complaint: Wound/Laceration Stated Complaint: ANAL FISSURE PAIN Time Seen by Provider: 04/19/24 19:51 Source: patient Mode of arrival: ambulatory Limitations: no limitations History of Present Illness HPI narrative: This is a 34-year-old male that presents to the emergency department for abdominal pain and constipation. Ongoing over the last week. Reports he had a bowel movement. He was seen in the ER for this earlier this morning. Tried taking MiraLax and Colace without relief. Reports he was also diagnosed with an anal fissure. Related Data Allergies Allergy/AdvReac Type Severity Reaction Status Date / Time No Known Allergies Allergy Verified 04/19/24 18:35 Review of Systems Review of Systems: CONSTITUTIONAL: Denies fever GASTROINTESTINAL: Reports abdominal pain. Denies nausea, vomiting, or diarrhea. GENITOURINARY: Denies dysuria or hematuria. All systems reviewed & are unremarkable except as noted in HPI and below PMFSH Past Medical History Medical History (Updated 04/19/24 @ 23:50 by Antonette Douglas PA-C) History of bipolar disorder History of hyperlipidemia Social History Social History (Updated 04/19/24 @ 20:47 by Antonette Douglas PA-C) Substance use: never Exam Narrative: GENERAL: Well-appearing, well-nourished, and in no acute distress. HEAD: Normocephalic, atraumatic. EYES: EOMI. CHEST: Clear to auscultation. No respiratory distress. No wheezes rales or rhonchi HEART: Regular rate and rhythm. No murmur heard. Normal peripheral pulses. ABDOMEN: Soft, nondistended, normal active bowel sounds. Mild tenderness to palpation throughout the abdomen, without guarding EXTREMITIES: Normal range of motion. No edema. SKIN: Warm, dry, no rash. NEURO: No focal deficits. Alert and oriented x3. PSYCH: Normal mood and affect Course Course Emergency Course: patient updated on his workup. Relief after enema Vital Signs Vital signs: Vital Signs Temperature 98 F 04/19/24 18:58 Pulse Rate 99 04/19/24 18:58 Respiratory Rate 20 04/19/24 18:58 Blood Pressure 140/86 04/19/24 18:58 Pulse Oximetry 98 04/19/24 18:58 Oxygen Delivery Room Air 04/19/24 18:58 Temperature 98.5 F 04/19/24 20:56 Pulse Rate 92 04/19/24 20:56 Respiratory Rate 20 04/19/24 20:56 Blood Pressure 122/83 04/19/24 20:56 Pulse Oximetry 99 04/19/24 20:56 Oxygen Delivery Room Air 04/19/24 18:58 MDM - Abdominal Pain MDM Narrative Medical decision making narrative: Patient presents to the emergency department for constipation, abdominal pain. Reporting no bowel movement for a week. His vitals are stable. He is afebrile and nontoxic appearing. CBC with mild leukocytosis to 11. Metabolic panel without concerning findings. Urine without evidence of infection. CT abdomen pelvis shows fecal impaction. patient updated on his workup. Relief after enema. He was given warnings to return to the ER Differential Diagnosis Differential diagnosis: Likely constipation, diverticulitis and small bowel obstruction Lab Data Attestation: I reviewed the patient's lab results. 04/19/24 20:09 04/19/24 20:09 Labs: Lab Results 04/19/24 04/19/24 Range/Units 20:09 21:07 WBC 11.0 H (4.5-10.0) K/mm3 RBC 4.99 (4.6-6.20) M/mm3 Hgb 14.3 (14.0-18.0) g/dL Hct 43.8 (42.0-52.0) % MCV 87.8 (80-100) fl MCH 28.7 (26-34) pg MCHC 32.6 (32-36) g/dl RDW 13.3 (11.5-14.5) % Plt Count 302 (150-375) k/mm3 MPV 10.0 (7.4-10.4) fl Immature Gran % (Auto) 0.5 (0-0.5) % Neut % (Auto) 80.5 H (45.5-73.1) % Lymph % (Auto) 10.3 L (18.3-44.2) % [place] % (Auto) 7.5 (2.6-8.5) % Eos % (Auto) 0.7 (0-4.4) % Baso % (Auto) 0.5 (0.2-1.2) % Lymph # (Auto) 1.13 (0.9-3.2) K/mm3 [place] # (Auto) 0.8 H (0.1-0.6) K/mm3 Eos # (Auto) 0.1 (0-0.3) K/mm3 Baso # (Auto) 0.1 (0.0-0.1) K/mm3 Abs Immat Gran (auto) 0.05 H (0.00-0.031) K/mm3 Absolute Neuts (auto) 8.9 H (1.3-6.7) K/mm3 Absolute Nucleated RBC 0.000 (0.0-0.012) K/mm3 Nucleated RBC % 0.0 (0.0-0.2) % Sodium 141 (137-145) mmol/L Potassium 4.2 (3.4-5.0) mmol/L Chloride 104 (98-107) mmol/L Carbon Dioxide 25 (22-30) mmol/L Anion Gap 12 (4-12) mmol/L BUN 11 (9-20) mg/dL Creatinine 1.03 (0.7-1.3) mg/dL Estim Creat Clear Calc 118 ml/min Estimated GFR > 60 (59 - ) Glucose 98 (65-110) mg/dL Calcium 10.3 H (8.4-10.2) mg/dL Total Bilirubin 0.9 (0.2-1.3) mg/dL AST 24 (17-59) U/L ALT 26 (6-50) U/L Alkaline Phosphatase 54 (38-126) U/L Total Protein 8.0 (6.3-8.2) g/dL Albumin 4.7 (3.5-5.1) g/dL Lipase 43 (23-300) U/L Urine Color Yellow (Yellow) Urine Appearance Clear (Clear) Urine pH 8.0 (5.0-9.0) Ur Specific [place] 1.006 (1.001-1.035) Urine Protein Negative (Negative) mg/dL Urine Glucose (UA) Negative (Negative) mg/dL Urine Ketones Negative (Negative) mg/dL Ur Blood (Man) Negative (Negative) Urine Nitrate Negative (Negative) Urine Bilirubin Negative (Negative) Urine Urobilinogen 0.2 (<2.0) mg/dL Leukocyte Esterase Rfl Negative (Negative) KATIE/UL Imaging Data Radiologist's impression: ITS Impressions Abdomen/Pelvis CT 04/19/24 21:54 IMPRESSION: Distended urinary bladder, correlate for clinical findings of urinary retention. Possible fecal impaction. Critical Care Time Critical Care Time Critical Care Time: No Discharge Plan Discharge Clinical Impression: Constipation Qualifiers: Constipation type: unspecified constipation type Qualified Code(s): K59.00 - Constipation, unspecified Patient Disposition: Home, Self-Care Condition: Improved Instructions: Constipation (ED) Additional Instructions: Return to the ER if you experience fever, abdominal pain with nausea and vomiting, you are unable to keep down liquids or solids, or any other symptoms that are concerning to you Remain well hydrated. Increase fresh fruits and vegetables. Continue Docusate daily (stool softener) Follow up with primary care doctor Patient Language: Belarusian Prescriptions: No Action docusate sodium 100 mg capsule 100 mg PO BID Qty: 60 0RF polyethylene glycol 3350 17 gram/dose powder 17 g PO BID Qty: 119 0RF nitroglycerin 0.4 % (w/w) ointment 1 inch RECTAL BID 28 Days Qty: 30 0RF Follow-up/Referrals: Nunu,Joseph Adame MD [Primary Care Provider] -
[2024-04-19 20:56] VITALS: BP 122/83; PULSE 92; RESP 20; TEMP 36.9; O2SAT 99
[2024-04-19 21:14] LABS: Add Urine Microscopic? NO; Appearance Urine Clear (Clear); Bilirubin Urine Negative (Negative); Blood Urine Negative (Negative); Color Urine Yellow (Yellow); Glucose Urine UA Negative (Negative); Ketones Urine Negative (Negative); Leukocyte Esterase Ur Negative LEU/UL (Negative); Nitrate Urine Negative (Negative); Protein Urine Negative (Negative); Specific Grav Ur 1.006 (1.001-1.035); Urobilinogen Urine 0.2 mg/dL (<2.0)
--- NOTE | 2024-04-19 23:11 | PC.NURSE ---
Report received from OBDULIA Mckeon. Assumed care of patient at this time. Patient holding in enema at this time.
[2024-04-19 23:54] VITALS: BP 129/78; PULSE 85; RESP 17; O2SAT 96
== END 2024-04-20 00:05 | disposition home or self-care (01) ==
PROVIDERS: Emergency Provider Physician Assistant; PCP Internal Medicine
DX: K59.00 Constipation, unspecified (principal); E78.5 Hyperlipidemia, unspecified; F31.9 Bipolar disorder, unspecified
CPT/HCPCS: 36415; 74177; 80053; 81003; 83690; 85025; 99284; Q9967